=== PATIENT | male | born 1960 | race Caucasian/White ===

== ENCOUNTER 2019-02-27 15:33 | Emergency (ER) | payer SELFPAY ==
[2019-02-27] MEDS ORDERED: Nitroglycerin 2% Ointment 1 INCH/1 GM Packet ONE (15:49)
[2019-02-27] MEDS ORDERED: Aspirin Chewable 81 MG TAB ONE (15:49)
[2019-02-27 16:07] LABS: #Basophils 0.1 thou/uL (0.0-0.2); #Eosinphils 0.1 thou/uL (0.0-0.7); #Lymphocytes 2.4 thou/uL (1.20-3.40); #Monocytes 0.6 thou/uL (0.11-0.59); #Neutrophils 3.7 thou/uL (1.40-6.50); %Basophils 1.6 % (0.0-1.0); %Eosinophils 1.3 % (0.0-10.0); %Lymphocytes 34.9 % (21.0-51.0); %Monocytes 8.7 % (0.0-10.0); %Neutrophils 53.6 % (42.0-75.0); Hemoglobin 13.9 g/dL (14.0-18.0); Mean Corpuscular HGB CONC 31.4 g/dL (32.0-36.0); Mean Corpuscular Hemoglobin 30.5 pg (27.0-31.0); Mean Corpuscular Volume 97.3 fL (78.0-98.0); Mean Platelet Volume 8.8 fL (7.4-10.4); Platelet Count 111 thou/uL (130-400); Platelet Morphology Comment Appears Decreased; RBC Distribution Width 13.6 % (11.5-14.5); Red Blood Cell (RBC) Count 4.55 mill/uL (4.70-6.10); White Blood Cell (WBC) Count 6.9 thou/uL (4.8-10.8)
[2019-02-27 16:17] LABS: ALT (SGPT) 50 U/L (8-55); AST (SGOT) 76 U/L (5-34); Albumin 3.8 g/dL (3.5-5.0); Alkaline Phosphatase 115 U/L (40-110); Anion Gap 17 mmol/L (10-20); BUN (Urea Nitrogen) 10 mg/dL (8.4-25.7); Bilirubin, Total 0.5 mg/dL (0.2-1.2); CK (CPK) 157 U/L (30-200); Calc. Creatinine Clearance 0 mL/min (70-130); Calcium 8.4 mg/dL (7.8-10.44); Carbon Dioxide 23 mmol/L (22-29); Chloride 99 mmol/L (98-107); Estimated GFR-MDRD Greater than 90; Globulin 3.9 g/dL (2.4-3.5); Glucose 95 mg/dL (70-105); Lipase 20 U/L (8-78); Potassium 4.1 mmol/L (3.5-5.1); Protein, Total 7.7 g/dL (6.0-8.3); Sodium 135 mmol/L (136-145)
--- NOTE | 2019-02-27 16:20 | RAD ---
EXAM: Chest one view: HISTORY: Chest pain COMPARISON: 07/16/2012 FINDINGS: Heart size: Within normal limits. Lungs: Clear of acute process. No evidence for confluent pneumonia, pleural effusion, acute edema, or pneumothorax, or other signifi cant acute process. IMPRESSION: No significant acute intrathoracic disease. Stable exam.
== END 2019-02-27 17:49 | disposition home or self-care (01) ==
LOC: MADERS 15:33
DX: R07.2 Precordial pain (principal); I25.10 Atherosclerotic heart disease of native coronary artery without angina pectoris; I25.2 Old myocardial infarction; I10 Essential (primary) hypertension; Z95.5 Presence of coronary angioplasty implant and graft
CPT/HCPCS: 71045; 80053; 82550; 83690; 84484; 85025; 85379; 93005; 94760

== ENCOUNTER 2022-07-04 18:54 | Emergency (ER) | payer SELFPAY ==
[2022-07-04 19:36] LABS: #Basophils 0.1 thou/uL (0.0-0.2); #Eosinphils 0.1 thou/uL (0.0-0.7); #Lymphocytes 1.4 thou/uL (1.20-3.40); #Monocytes 0.3 thou/uL (0.11-0.59); #Neutrophils 2.2 thou/uL (1.40-6.50); %Basophils 1.5 % (0.0-1.0); %Eosinophils 3.2 % (0.0-10.0); %Lymphocytes 34.8 % (21.0-51.0); %Monocytes 7.7 % (0.0-10.0); %Neutrophils 52.8 % (42.0-75.0); Hemoglobin 15.1 g/dL (14.0-18.0); Mean Corpuscular HGB CONC 34.9 g/dL (32.0-36.0); Mean Corpuscular Hemoglobin 30.8 pg (27.0-31.0); Mean Corpuscular Volume 88.2 fl (78.0-98.0); Mean Platelet Volume 7.2 fL (7.4-10.4); Platelet Count 50 10x3/uL (130-400); Platelet Morphology Comment Appears Decreased; RBC Distribution Width 12.4 % (11.5-14.5); RBC Morphology Normal; Red Blood Cell (RBC) Count 4.89 mill/uL (4.70-6.10); White Blood Cell (WBC) Count 4.1 10x3/uL (4.8-10.8)
[2022-07-04 19:40] LABS: MDiff Complete? YES
[2022-07-04 19:42] LABS: ALT (SGPT) 48 U/L (8-55); AST (SGOT) 72 U/L (5-34); Albumin 4.1 g/dL (3.5-5.0); Alkaline Phosphatase 198 U/L (40-110); Anion Gap 11 mmol/L (10-20); BUN (Urea Nitrogen) 7 mg/dL (8.4-25.7); Bilirubin, Total 1.2 mg/dL (0.2-1.2); Calc. Creatinine Clearance 0 mL/min (70-130); Carbon Dioxide 27 mmol/L (22-29); Chloride 100 mmol/L (98-107); Estimated GFR 105; Globulin 4.6 g/dL (2.4-3.5); Glucose 118 mg/dL (70-105); Potassium 3.9 mmol/L (3.5-5.1); Protein, Total 8.7 g/dL (6.0-8.3); Sodium 134 mmol/L (136-145)
== END 2022-07-04 20:27 | disposition home or self-care (01) ==
LOC: MADERS 18:54
DX: I10 Essential (primary) hypertension (principal); D69.6 Thrombocytopenia, unspecified; E11.9 Type 2 diabetes mellitus without complications; I25.10 Atherosclerotic heart disease of native coronary artery without angina pectoris
CPT/HCPCS: 36416; 70450; 80053; 85025; 93005; 94760

== ENCOUNTER 2022-12-23 19:20 | Emergency (ER) | payer SELFPAY ==
[2022-12-23] MEDS ORDERED: Ibuprofen 800 MG TAB ONE (20:30)
[2022-12-23] MEDS ORDERED: HYDROcodone/Acetaminophen 5/325 mg Tablet ONE (22:26)
== END 2022-12-23 22:40 | disposition home or self-care (01) ==
LOC: MADERS 19:20
DX: S82.832A Other fracture of upper and lower end of left fibula, initial encounter for closed fracture (principal); E11.9 Type 2 diabetes mellitus without complications; I25.10 Atherosclerotic heart disease of native coronary artery without angina pectoris; I10 Essential (primary) hypertension; F17.220 Nicotine dependence, chewing tobacco, uncomplicated; Z79.899 Other long term (current) drug therapy; W22.8XXA Striking against or struck by other objects, initial encounter
CPT/HCPCS: 29515

== ENCOUNTER 2024-04-13 17:46 | Emergency (ER) | payer OTHER ==
[2024-04-13] MEDS ORDERED: Ketorolac Tromethamine 30 MG (1 mL) VIAL ONE (18:08)
== END 2024-04-13 19:14 | disposition home or self-care (01) ==
LOC: MADERS 17:46
DX: S80.912A Unspecified superficial injury of left knee, initial encounter (principal); I10 Essential (primary) hypertension; E11.9 Type 2 diabetes mellitus without complications; F17.220 Nicotine dependence, chewing tobacco, uncomplicated; W17.2XXA Fall into hole, initial encounter; Z55.6 Problems related to health literacy
CPT/HCPCS: 96372; 99283; J1885

== ENCOUNTER 2025-04-16 13:52 | Emergency (ER) | payer OTHER, SELFPAY ==
[~2025-04-16 13:52] MED LIST: Iopamidol 370 76% 100 ML VIAL ONE
[2025-04-16 14:48] LABS: Glucose, Urine (Dipstick) Negative (Negative); Leukocyte Negative (Negative); Protein, Urine (Dipstick) Negative (Neg-Trace); Specific Gravity, Urine 1.010 (1.005-1.030)
[2025-04-16 15:03] LABS: INR-International Normal Ratio 1.8; Prothrombin Time 20.7 sec (12.0-14.7)
[2025-04-16 15:04] LABS: PTT 39.2 sec (22.9-36.1)
[2025-04-16 15:05] LABS: Bacteria/HPF Rare-Few HPF (None Seen); CAUTI Indications for Culture Dysuria,urgency,freq; Urine Culture Reflex No No; WBC/HPF None Seen HPF (0-3)
[2025-04-16 15:07] LABS: #Basophils 0.1 thou/uL (0.0-0.2); #Eosinophils 0.0 thou/uL (0.0-0.7); #Lymphocytes 0.8 thou/uL (1.20-3.40); #Monocytes 0.3 thou/uL (0.11-0.59); #Neutrophils 2.1 thou/uL (1.40-6.50); %Basophils 2.3 % (0.0-1.0); %Eosinophils 1.3 % (0.0-10.0); %Lymphocytes 23.4 % (21.0-51.0); %Monocytes 8.7 % (0.0-10.0); %Neutrophils 64.3 % (42.0-75.0); Hematocrit 35.8 % (42.0-52.0); Hemoglobin 11.9 g/dL (14.0-18.0); Mean Corpuscular Hemoglobin 32.6 pg (27.0-31.0); Mean Corpuscular Volume 98.4 fl (78.0-98.0); Platelet Count 47 10x3/uL (130-400); Red Blood Cell (RBC) Count 3.64 mill/uL (4.70-6.10); White Blood Cell (WBC) Count 3.3 10x3/uL (4.8-10.8)
[2025-04-16 15:14] LABS: Troponin I 0.031 ng/mL (< 0.028)
[2025-04-16 15:16] LABS: ALT (SGPT) 31 U/L (Less than 45); AST (SGOT) 106 U/L (11-34); Albumin 2.5 g/dL (3.1-4.5); Alkaline Phosphatase 132 U/L (40-110); Anion Gap 15 mmol/L (10-20); BUN (Urea Nitrogen) 4 mg/dL (8.4-25.7); Bilirubin, Total 2.3 mg/dL (0.3-1.2); Calc. Creatinine Clearance 0 mL/min (70-130); Calcium 7.7 mg/dL (7.8-10.44); Carbon Dioxide 23 mmol/L (23-31); Chloride 101 mmol/L (98-107); Globulin 4.9 g/dL (2.4-3.5); Glucose 167 mg/dL (80-115); Lipase 18 U/L (8-78); Magnesium 1.7 mg/dL (1.6-2.6); Potassium 3.6 mmol/L (3.5-5.1); Sodium 135 mmol/L (136-145)
[2025-04-16 15:18] LABS: Cocaine Metabolite Screen Negative (Negative); THC/Cannabinoid Screen Negative (Negative); Tricyclic Screen Negative (Negative)
[2025-04-16 15:21] LABS: Platelet Adequacy Comment Platelets Decreased
[2025-04-16 15:31] LABS: Bicarbonate (HCO3v) 26.3 mmol/L (22.0-28.0); CO2 Tension (PvCO2) 38.2 mmHg (42.0-51.0); Calcium, Ionized 0.98 mmol/L (1.15-1.33); Chloride 108 mmol/L (98-107); Hemoglobin - Calc 12.1 g/dL (14.0-18.0); Potassium 3.6 mmol/L (3.5-5.1); Sodium 137 mmol/L (138-145); T. Carbon Dioxide 27.5 mmol/L (22.0-28.0); vO2 Saturation-calc 99.9 % (60.0-85.0)
[2025-04-16] MEDS ORDERED: Furosemide 20 MG (2 mL) VIAL ONE (17:18)
== END 2025-04-16 18:49 | disposition short-term general hospital (02) ==
LOC: MADERS 13:52
DX: R18.8 Other ascites (principal); E11.9 Type 2 diabetes mellitus without complications; I10 Essential (primary) hypertension; I25.10 Atherosclerotic heart disease of native coronary artery without angina pectoris; I25.2 Old myocardial infarction; F17.220 Nicotine dependence, chewing tobacco, uncomplicated; Z95.5 Presence of coronary angioplasty implant and graft
CPT/HCPCS: 74177; 80053; 80306; 80307; 81001; 82140; 82330; 82435; 82803; 83605; 83690; 83735; 83880; 84132; 84295; 84484; 85014; 85025; 85610; 85730; 93005; 96374; J1940; Q9967